=== PATIENT | male | born 1945 | race Two or more races ===

== ENCOUNTER 2018-03-18 10:09 | Outpatient (CLI) | payer OTHER | END 2018-03-18 10:22 | disposition home or self-care (01) | LOC: RAD 10:09 | DX: R01.1 Cardiac murmur, unspecified (principal); M54.89 Other dorsalgia; M54.2 Cervicalgia; I10 Essential (primary) hypertension; N18.3 Chronic kidney disease, stage 3 (moderate); Z13.220 Encounter for screening for lipoid disorders; Z12.11 Encounter for screening for malignant neoplasm of colon; Z12.5 Encounter for screening for malignant neoplasm of prostate ==

== ENCOUNTER 2018-04-11 07:13 | Outpatient (CLI) | payer OTHER | END 2018-04-11 09:03 | disposition home or self-care (01) | LOC: LAB 07:13 | DX: R01.1 Cardiac murmur, unspecified (principal); M54.89 Other dorsalgia; M54.2 Cervicalgia; I10 Essential (primary) hypertension; N18.3 Chronic kidney disease, stage 3 (moderate); Z13.220 Encounter for screening for lipoid disorders; Z13.89 Encounter for screening for other disorder; Z12.11 Encounter for screening for malignant neoplasm of colon; Z12.5 Encounter for screening for malignant neoplasm of prostate ==

== ENCOUNTER 2018-08-24 07:15 | Outpatient (CLI) | payer OTHER | END 2018-08-24 07:43 | disposition home or self-care (01) | LOC: LAB 07:15 | DX: I10 Essential (primary) hypertension (principal); N18.9 Chronic kidney disease, unspecified; Z13.89 Encounter for screening for other disorder; Z11.3 Encounter for screening for infections with a predominantly sexual mode of transmission; Z12.5 Encounter for screening for malignant neoplasm of prostate; Z12.11 Encounter for screening for malignant neoplasm of colon; Z13.820 Encounter for screening for osteoporosis; E78.49 Other hyperlipidemia ==

== ENCOUNTER 2018-12-28 07:41 | Outpatient (CLI) | payer OTHER | END 2018-12-28 14:39 | disposition home or self-care (01) | LOC: LAB 07:41 | DX: M47.816 Spondylosis without myelopathy or radiculopathy, lumbar region (principal); K86.89 Other specified diseases of pancreas; Z76.0 Encounter for issue of repeat prescription ==

== ENCOUNTER 2019-03-18 07:37 | Outpatient (CLI) | payer OTHER | END 2019-03-18 07:46 | disposition home or self-care (01) | LOC: SONOGRAMA 07:37 | DX: R10.84 Generalized abdominal pain (principal) ==

== ENCOUNTER 2019-03-27 07:22 | Outpatient (CLI) | payer OTHER | END 2019-03-27 07:35 | disposition home or self-care (01) | LOC: LAB 07:22 | DX: R10.84 Generalized abdominal pain (principal); N18.3 Chronic kidney disease, stage 3 (moderate) ==

== ENCOUNTER 2019-08-06 06:35 | Outpatient (CLI) | payer OTHER | END 2019-08-06 07:02 | disposition home or self-care (01) | LOC: LAB 06:35 | DX: M25.579 Pain in unspecified ankle and joints of unspecified foot (principal); M25.50 Pain in unspecified joint; N18.3 Chronic kidney disease, stage 3 (moderate); R10.84 Generalized abdominal pain; Z13.89 Encounter for screening for other disorder; Z13.220 Encounter for screening for lipoid disorders ==

== ENCOUNTER 2020-05-28 08:03 | Outpatient (CLI) | payer OTHER | END 2020-05-28 08:14 | disposition home or self-care (01) | LOC: SONOGRAMA 08:03 → MAMO-SONO 08:45 | PROVIDERS: ATTEND General Practice | DX: Q61.8 Other cystic kidney diseases (principal); R10.84 Generalized abdominal pain ==

== ENCOUNTER 2021-08-20 08:02 | Outpatient (CLI) | payer OTHER | END 2021-08-20 08:22 | disposition home or self-care (01) | LOC: LAB 08:02 | PROVIDERS: ATTEND General Practice | DX: D64.89 Other specified anemias (principal); Z11.52 Encounter for screening for COVID-19; Z20.822 Contact with and (suspected) exposure to COVID-19; N28.89 Other specified disorders of kidney and ureter; Z13.89 Encounter for screening for other disorder; Z13.220 Encounter for screening for lipoid disorders; Z11.3 Encounter for screening for infections with a predominantly sexual mode of transmission; Z13.1 Encounter for screening for diabetes mellitus; Z12.11 Encounter for screening for malignant neoplasm of colon ==

== ENCOUNTER → 2021-08-24 06:22 | Outpatient (CLI) | payer OTHER | END | disposition home or self-care (01) | LOC: LAB 06:22 | PROVIDERS: ATTEND General Practice | DX: Z20.822 Contact with and (suspected) exposure to COVID-19 (principal); Z11.52 Encounter for screening for COVID-19; D64.9 Anemia, unspecified; Z13.89 Encounter for screening for other disorder; N18.30 Chronic kidney disease, stage 3 unspecified; Z13.220 Encounter for screening for lipoid disorders; Z11.3 Encounter for screening for infections with a predominantly sexual mode of transmission; Z13.1 Encounter for screening for diabetes mellitus; Z12.5 Encounter for screening for malignant neoplasm of prostate; Z12.11 Encounter for screening for malignant neoplasm of colon ==

== ENCOUNTER 2021-09-17 09:21 | Inpatient (IN) | payer OTHER ==
[~2021-09-17] VITALS: Ht 157.5 cm; Wt 74.8 kg
[2021-09-17] MEDS ORDERED: COZAAR50 MG PO (09:42)
[2021-09-19] MEDS ORDERED: MONTELUKAST SOD10 MG (10:12)
[2021-09-19] MEDS ORDERED: LEVALBUTER0.63 MG/3 (10:12)
[2021-09-19] MEDS ORDERED: DOLOGESIC-DF 51 EACH (10:12)
[2021-09-19] MEDS ORDERED: SYMBICORT 16010.2 GM (10:12)
[2021-09-19] MEDS ORDERED: SULINDAC200 MG (10:13)
[2021-09-19] MEDS ORDERED: MOMETASONE FURO15 G2 (10:13)
[2021-09-19] MEDS ORDERED: ESOMEPRAZOLE MA40 MG (10:13)
== END 2021-09-20 18:02 | disposition home or self-care (01) | DRG 439 ==
LOC: ER 09:21 → MEDI 09-18 01:02 → MEDJ 09-18 05:25 → MEDI 09-18 09:02 → MEDJ 09-18 11:01
PROVIDERS: ADMIT Internal Medicine; ATTEND Internal Medicine
DX: K85.90 Acute pancreatitis without necrosis or infection, unspecified (principal); N17.8 Other acute kidney failure; K57.30 Diverticulosis of large intestine without perforation or abscess without bleeding; R10.11 Right upper quadrant pain; E87.5 Hyperkalemia; I12.9 Hypertensive chronic kidney disease with stage 1 through stage 4 chronic kidney disease, or unspecified chronic kidney disease; N18.30 Chronic kidney disease, stage 3 unspecified; Z20.822 Contact with and (suspected) exposure to COVID-19

== ENCOUNTER 2022-12-02 07:33 | Outpatient (CLI) | payer OTHER ==
[~2022-12-02 07:33] MED LIST: COZAAR50 MG PO; DOLOGESIC-DF 51 EACH; ESOMEPRAZOLE MA40 MG; LEVALBUTER0.63 MG/3; MOMETASONE FURO15 G2; MONTELUKAST SOD10 MG; SULINDAC200 MG; SYMBICORT 16010.2 GM
== END 2022-12-02 07:44 | disposition home or self-care (01) ==
LOC: LAB 07:33
PROVIDERS: ATTEND Internal Medicine
DX: N18.1 Chronic kidney disease, stage 1 (principal); I11.9 Hypertensive heart disease without heart failure; E78.01 Familial hypercholesterolemia; Z12.5 Encounter for screening for malignant neoplasm of prostate; J44.1 Chronic obstructive pulmonary disease with (acute) exacerbation; K57.30 Diverticulosis of large intestine without perforation or abscess without bleeding